=== PATIENT | female | born 1980 | race African-American/Black ===

== ENCOUNTER 2018-12-13 12:39 | Emergency (ER) | payer BC ==
[2018-12-13 13:04] VITALS: BP 148/91
[2018-12-13] MEDS ORDERED: METOCLOPRAMIDE HCL ORAL SOLN 10 MG/10 ML UDCUP PO ONE (14:24)
[2018-12-13] MEDS ORDERED: ASPIRIN 81 MG TABLET, CHEWABLE PO ONE (14:24)
[2018-12-13] MEDS ORDERED: LIDOCAINE 2% VISCOUS SOLN 20 ML UDCUP PO ONE (14:26)
--- NOTE | 2018-12-13 14:28 | ER Document Report ---
ED Medical Screen (RME) - General Chief Complaint: Chest Pain Stated Complaint: CHEST PAIN Time Seen by Provider: 12/13/18 14:24 Mode of Arrival: Ambulatory Information source: Patient Notes: 38-year-old female presented to ED for chest pain x1 week. She states her family medicine doctor and swelling as well as told her that she needed to come to the emergency room and be evaluated for chest pain. It is substernal chest pain. She does have a history of high blood pressure and gallbladder removal. She had 2 recent menstrual periods and I have listed them on the face she of her chart. Patient is alert oriented respirations regular and unlabored lungs are clear to auscultation. I have greeted and performed a rapid initial assessment of this patient. A comprehensive ED assessment and evaluation of the patient, analysis of test results and completion of medical decision making process will be conducted by an additional ED providers. Dictation of this chart was performed using voice recognition software; therefore, there may be some unintended grammatical errors. TRAVEL OUTSIDE OF THE [place] IN LAST 30 DAYS: No Physical Exam - Vital signs Vitals: Temp Pulse Resp BP Pulse Ox 98.3 F 69 16 148/91 H 98 12/13/18 13:03 12/13/18 13:03 12/13/18 13:03 12/13/18 13:03 12/13/18 13:03 Course - Vital Signs Vital signs: Temp Pulse Resp BP Pulse Ox 98.3 F 69 16 148/91 H 98 12/13/18 13:03 12/13/18 13:03 12/13/18 13:03 12/13/18 13:03 12/13/18 13:03
--- NOTE | 2018-12-15 10:22 | EKG REPORT ---
SEVERITY:- NORMAL ECG - SINUS RHYTHM : Confirmed by: Ken Vernon 15-Dec-2018 10:20:15
== END 2018-12-13 15:19 | disposition left against medical advice (07) ==
LOC: ER 12:39
DX: Z53.21 Procedure and treatment not carried out due to patient leaving prior to being seen by health care provider (principal); R07.9 Chest pain, unspecified; M79.89 Other specified soft tissue disorders
CPT/HCPCS: 93005; 93010; 99281

== ENCOUNTER 2019-02-26 14:38 | Emergency (ER) | payer BC ==
[2019-02-26] MEDS ORDERED: NORMAL SALINE 1000 ML 1,000 ML IV PRN (15:10)
[2019-02-26] MEDS ORDERED: PROMETHAZINE HCL INJ 25 MG/1 ML VIAL IM ONE (15:10)
--- NOTE | 2019-02-26 15:12 | ER Document Report ---
ED Medical Screen (RME) - General Chief Complaint: Vomiting Stated Complaint: VOMITING Time Seen by Provider: 02/26/19 15:10 TRAVEL OUTSIDE OF THE [place] IN LAST 30 DAYS: No - HPI Notes: 02/26/19 15:11 Patient is a 38-year-old female G4, P2 approximately 8 weeks with one previous miscarriage who presents complaining of nausea and vomiting that has been ongoing for the past 5 days. She will have some abdominal soreness associated. Patient states that she cannot keep any solid food down. Patient states that she has had hyperemesis with previous pregnancies. She also reports a medical history of cholecystectomy. She is not aware of the placement of her , but to have urinary confirmatory testing previously. She is urinating normally and having normal bowel movements. Denies BRAUN, fever, neck pain, URI, CP, SOB, dysuria, back pain, or rash. I have treated and performed a rapid initial assessment of this patient. A comprehensive ED assessment and evaluation of the patient, analysis of test results and completion of medical decision making process will be conducted by additional ED providers. PHYSICAL EXAMINATION: GENERAL: Well-appearing, well-nourished and in no acute distress. A&Ox4. Answers questions appropriately. LUNGS: Breath sounds clear to auscultation bilaterally and equal. No wheezes rales or rhonchi. HEART: Regular rate and rhythm without murmurs, rubs, gallops. ABDOMEN: Soft, nondistended abdomen. No guarding, no rebound. Normal bowel sounds present. No CVA tenderness bilaterally. Grossly nontender (cannot elicit thorough abd exam w/o bed, however). - Related Data Allergies/Adverse Reactions: No Known Allergies Allergy (Verified 02/26/19 14:41) Past Medical History - Social History Frequency of alcohol use: None Drug Abuse: None - Past Medical History Cardiac Medical History: Reports: Hx Hypertension Renal/ Medical History: Denies: Hx Peritoneal Dialysis Physical Exam - Vital signs Vitals: Temp Pulse Resp BP Pulse Ox 99.0 F 88 16 153/108 H 98 02/26/19 14:46 02/26/19 14:46 02/26/19 14:46 02/26/19 14:46 02/26/19 14:46 Course - Vital Signs Vital signs: Temp Pulse Resp BP Pulse Ox 99.0 F 88 16 153/108 H 98 02/26/19 14:46 02/26/19 14:46 02/26/19 14:46 02/26/19 14:46 02/26/19 14:46
[2019-02-26 15:46] LABS: ABSOLUTE BASOPHILS # (AUTO) 0.1 10^3/uL (0.0-0.2); ABSOLUTE LYMPHOCYTES (AUTO) 2.3 10^3/uL (0.5-4.7); BASOPHILS % (AUTO) 0.8 % (0-2); EOSINOPHILS % (AUTO) 0.3 % (0-6); HEMATOCRIT 36.4 % (36.0-47.0); HEMOGLOBIN 11.7 g/dL (12.0-15.5); MEAN CORPUSCULAR HEMOGLOBIN 22.6 pg (27.0-33.4); MEAN CORPUSCULAR HGB CONC 32.2 g/dL (32.0-36.0); MEAN CORPUSCULAR VOLUME 70 fl (80-97); MONOCYTES % (AUTO) 13.4 % (3-13); PLATELET COUNT 423 10^3/uL (150-450); RED CELL DISTRIBUTION WIDTH 17.7 % (11.5-14.0); SEGMENTED NEUTROPHILS % (AUTO) 54.5 % (42-78); TOTAL CELLS COUNTED % (AUTO) 100 %; WHITE BLOOD COUNT 7.3 10^3/uL (4.0-10.5)
[2019-02-26 16:05] LABS: ALBUMIN 4.1 g/dL (3.5-5.0); ALKALINE PHOSPHATASE 74 U/L (38-126); ANION GAP 7 (5-19); ASPARTATE AMINO TRANSFERASE 28 U/L (14-36); BILIRUBIN,DIRECT 0.3 mg/dL (0.0-0.4); BILIRUBIN,TOTAL 0.4 mg/dL (0.2-1.3); BLOOD UREA NITROGEN 8 mg/dL (7-20); CALCIUM 9.6 mg/dL (8.4-10.2); CARBON DIOXIDE 23 mmol/L (22-30); CHLORIDE 107 mmol/L (98-107); GLUCOSE 103 mg/dL (75-110); TOTAL PROTEIN 7.9 g/dL (6.3-8.2)
--- NOTE | 2019-02-26 16:08 | ER Document Report ---
ED GI/ - General Chief Complaint: Vomiting Stated Complaint: VOMITING Time Seen by Provider: 02/26/19 15:10 Primary Care Provider: [facility] [Provider Group] - Follow up as needed Notes: Patient is a 38-year-old female who presents to the emergency department with a chief complaint of nausea and vomiting. Patient states that she has vomited about 5-6 times per day for the past week. Patient reports a history of hyperemesis gravidarum during her other pregnancies. Patient states today she is attempted to eat ice chips and broth which she did keep down today. Patient states she feels like she is having acid reflux. Patient denies abdominal pain but reports generalized soreness to the upper abdomen from the vomiting. Patient states her last menstrual period was January 04. Patient has her first [facility] appointment at [facility] on March 07. Patient denies any urinary symptoms. Patient denies vaginal bleeding or discharge. TRAVEL OUTSIDE OF THE [place] IN LAST 30 DAYS: No - Related Data Allergies/Adverse Reactions: No Known Allergies Allergy (Verified 02/26/19 14:41) Past Medical History - General Information source: Patient - Social History Smoking Status: Never Smoker Frequency of alcohol use: None Drug Abuse: None Lives with: Spouse/Significant other Family History: None Patient has suicidal ideation: No Patient has homicidal ideation: No - Past Medical History Cardiac Medical History: Reports: Hx Hypertension Pulmonary Medical History: Reports: None EENT Medical History: Reports: None Neurological Medical History: Reports: None Endocrine Medical History: Reports: None Renal/ Medical History: Reports: None. Denies: Hx Peritoneal Dialysis Malignancy Medical History: Reports: None GI Medical History: Reports: None Musculoskeletal Medical History: Reports None Skin Medical History: Reports None Psychiatric Medical History: Reports: None Traumatic Medical History: Reports: None Infectious Medical History: Reports: None Past Surgical History: Reports: None Review of Systems - Review of Systems Constitutional: No symptoms reported EENT: No symptoms reported Cardiovascular: No symptoms reported Respiratory: No symptoms reported Gastrointestinal: See HPI Genitourinary: No symptoms reported Female Genitourinary: No symptoms reported Musculoskeletal: No symptoms reported Skin: No symptoms reported Hematologic/Lymphatic: No symptoms reported Neurological/Psychological: No symptoms reported Physical Exam - Vital signs Vitals: Temp Pulse Resp BP Pulse Ox 99.0 F 88 16 153/108 H 98 02/26/19 14:46 02/26/19 14:46 02/26/19 14:46 02/26/19 14:46 02/26/19 14:46 Interpretation: Hypertensive - Notes Notes: GENERAL: Well-appearing, well-nourished and in no acute distress. HEAD: Atraumatic, normocephalic. EYES: Pupils equal round and reactive to light, extraocular movements intact, sclera anicteric, conjunctiva are normal. ENT: Nares patent, oropharynx clear without exudates. Moist mucous membranes. NECK: Normal range of motion, supple without lymphadenopathy or JVD. LUNGS: Breath sounds clear to auscultation bilaterally and equal. No wheezes rales or rhonchi. HEART: Regular rate and rhythm without murmurs, rubs or gallops. ABDOMEN: Soft, nontender, hyperactive bowel sounds. No guarding, no rebound. No masses appreciated. BACK: No cervical, thoracic, lumbar midline tenderness. No saddle anesthesia, normal distal neurovascular exam. No CVA tenderness. GENITOURINARY: Deferred. EXTREMITIES: Normal range of motion, no pitting or edema. No clubbing or cyanosis. NEUROLOGICAL: Cranial nerves II through XII grossly intact. Normal speech, normal gait. PSYCH: Normal mood, normal affect. SKIN: Warm, Dry, normal turgor, no rashes or lesions noted. Course - Re-evaluation Re-evalutation: 02/26/19 16:06 Upon initial evaluation patient sitting upright in stretcher in no acute distress. Ultrasound and lab results are pending. Patient currently reports nausea without vomiting. Will give IV hydration as previously ordered in triage with antiemetic. 02/26/19 16:58 Patient received 500 mL's of saline and then her IV blew. Patient states she does feel much better and has not vomited. Patient would like to try to sip on some liquids. Crackers and liquids provided. Blood work was unremarkable for significant dehydration. Patient has yet to urinate. 02/26/19 17:28 Patient is tolerating sips of her beverage and saltine crackers. She has had no vomiting since arriving to the emergency department. Ultrasound and urinalysis results are pending. Urinalysis shows trace ketones as well as trace leukocytes with a low amount of white blood cells. 02/26/19 18:07 At time of discharge patient's blood pressure is slightly elevated. Patient denies headache, chest pain or shortness of breath. I did inform the patient to monitor her blood pressure at home and keep a blood pressure diary if she is able to take these readings to her [facility] at her appointment on 07 March. I did inform the patient to return if she develops a headache, dizziness, chest pain or any other concerning signs or symptoms. - Vital Signs Vital signs: Temp Pulse Resp BP Pulse Ox 99.0 F 79 16 141/100 H 98 02/26/19 14:46 02/26/19 18:00 02/26/19 14:46 02/26/19 18:00 02/26/19 18:00 - Laboratory Result Diagrams: 02/26/19 15:31 02/26/19 15:31 Laboratory results interpreted by me: 02/26/19 02/26/19 02/26/19 15:31 15:31 17:03 Hgb 11.7 L MCV 70 L MCH 22.6 L RDW 17.7 H Monocytes % 13.4 H Sodium 136.5 L Beta HCG, Quant 318060.00 H Urine Ketones 20 H Urine Urobilinogen 2.0 H Ur Leukocyte Esterase TRACE H 02/26/19 16:22 Patient's lab work is unremarkable does not show leukocytosis, significant anemia or alteration in her electrolytes, normal kidney and liver function. Laboratory 02/26/19 02/26/19 15:31 15:31 WBC 7.3 RBC 5.20 Hgb 11.7 L Hct 36.4 MCV 70 L MCH 22.6 L MCHC 32.2 RDW 17.7 H Plt Count 423 Seg Neutrophils % 54.5 Lymphocytes % 31.0 Monocytes % 13.4 H Eosinophils % 0.3 Basophils % 0.8 Absolute Neutrophils 4.0 Absolute Lymphocytes 2.3 Absolute Monocytes 1.0 Absolute Eosinophils 0.0 Absolute Basophils 0.1 Sodium 136.5 L Potassium 4.0 Chloride 107 Carbon Dioxide 23 Anion Gap 7 BUN 8 Creatinine 0.54 Est GFR ( Amer) > 60 Est GFR (Non-Af Amer) > 60 Glucose 103 Calcium 9.6 Total Bilirubin 0.4 Direct Bilirubin 0.3 Neonat Total Bilirubin Not Reportable Neonat Direct Bilirubin Not Reportable Neonat Indirect Bili Not Reportable AST 28 ALT 11 Alkaline Phosphatase 74 Total Protein 7.9 Albumin 4.1 Lipase 94.0 Total Beta HCG POSITIVE - Diagnostic Test Radiology reviewed: Reports reviewed Radiology results interpreted by me: 02/26/19 17:43 Obstetrics Ultrasound 02/26/19 15:10 IMPRESSION: LIVING INTRAUTERINE . EGA of 7 weeks 6 days Trimester of : First trimester - 0 to 13 weeks. Discharge - Discharge Clinical Impression: Vomiting during Acid reflux Qualifiers: Esophagitis presence: esophagitis presence not specified Qualified Code(s): K21.9 - Gastro-esophageal reflux disease without esophagitis Condition: Stable Disposition: HOME, SELF-CARE Additional Instructions: Today you were seen in the emergency department for vomiting during . We did obtain a ultrasound which does show a left single living intrauterine . Her estimated due date is October 08 and in the fetus is measuring 7 weeks and 6 days with a heart rate of 158. Please continue to keep your appointment with [facility] and comes in for any questions or concerns. Please return the emergency department if you develop abdominal pain, uncontrollable vomiting despite taking the Phenergan, vaginal bleeding or discharge or any other concerning signs or symptoms. He may take Tums, Maalox, Mylanta, Zantac or Prilosec for your heartburn. In regards to your nausea please eat small frequent meals. Using peppermint can help with nausea as well as sea-bands. Please take a vitamin. You are . care is best started as early in as possible. If you're unsure about continuing this , you should discuss this with your physician or with gyro mechanic at [facility]. You should take only medications approved by your physician. Acetaminophen can safely be taken for minor pains. As a rule, medication for chronic c onditions such as asthma or seizures can safely be continued. You should discuss with the physician every medicine you take. Any regular exercise program can be continued. Talk to your physician, however, before engaging in competitive or demanding sports. Alcohol, smoking, and "street drugs" are dangerous to your baby. Cocaine is especially dangerous. Don't use any illicit drugs! Prescriptions: Promethazine HCl [Phenergan 25 mg Tablet] 1 tab PO Q6H PRN #10 tablet PRN Reason: Referrals: [facility] [Provider Group] - Follow up as needed
[2019-02-26] MEDS ORDERED: LIDOCAINE 2% VISCOUS SOLN 20 ML UDCUP PO ONE (17:28)
[2019-02-26] MEDS ORDERED: MAG HYDROX/AL HYDROX/SIMETH SUSP 30 ML UDCUP PO ONE (17:28)
[2019-02-26] MEDS ORDERED: METOCLOPRAMIDE HCL ORAL SOLN 10 MG/10 ML UDCUP PO ONE (17:28)
[2019-02-26 17:29] LABS: APPEARANCE,URINE SLIGHTLY-CLOUDY; BILIRUBIN,URINE NEGATIVE (NEGATIVE); COLOR,URINE YELLOW; GLUCOSE, URINE NEGATIVE (NEGATIVE); KETONES,URINE 20 mg/dL (NEGATIVE); LEUKOCYTE ESTERASE,URINE TRACE (NEGATIVE); NITRITE,URINE NEGATIVE (NEGATIVE); PROTEIN,URINE NEGATIVE (NEGATIVE); URINE SPECIFIC GRAVITY 1.023
--- NOTE | 2019-02-26 17:35 | RADIOLOGY REPORT (SQ) ---
EXAM DESCRIPTION: U/S OB TRANSVAGINAL W/O DOP COMPLETED DATE/TIME: 02/26/2019 5:11 pm REASON FOR STUDY: preg, n/v, abd pain COMPARISON: None. TECHNIQUE: Transvaginal static and realtime grayscale images acquired of the pelvis. Additional gary cted spectral and color Doppler images recorded. All images stored on PACs. bHCG: Pending. CLINICAL DATES: 7 weeks 4 days LIMITATIONS: None. FINDINGS: FETUS: Single Living intrauterine . ULTRASOUND EGA: 7 weeks 6 days ULTRASOUND GURJIT: 10/09/2019 EFW: Not applicable less than 20 weeks. CRL: 1.5 cm FHR: 158 beats per minute. SURVEY: No visualized anomalies. AMNIOTIC FLUID: Adequate amount. PLACENTA: Not yet developed due to early gestation. SUBCHORIONIC BLEED: Yes. SIZE OF BLEED: 16 x 14 x 10 mm. UTERUS: No masses. No anomalies. CERVICAL LENGTH: 3.8 cm Closed. RIGHT ADNEXA: Ovary not identified due to poor acoustical window. No adnexal free fluid. No adnexal masses. LEFT ADNEXA: Normal ovary with normal vascular flow. No adnexal free fluid. No adnexal masses. FREE FLUID: None. OTHER: No other significant finding. IMPRESSION: LIVING INTRAUTERINE . EGA of 7 weeks 6 days Trimester of : First trimester - 0 to 13 weeks. TECHNICAL DOCUMENTATION: JOB ID: [id number] [employer]- All Rights Reserved rev-12/11 Reading location - IP/workstation name: [email or web address]
[2019-02-26 18:06] VITALS: BP 141/100
== END 2019-02-26 18:11 | disposition home or self-care (01) ==
LOC: ER 14:38
DX: O99.611 Diseases of the digestive system complicating pregnancy, first trimester (principal); K21.9 Gastro-esophageal reflux disease without esophagitis; O21.9 Vomiting of pregnancy, unspecified; O16.1 Unspecified maternal hypertension, first trimester; Z3A.01 Less than 8 weeks gestation of pregnancy
CPT/HCPCS: 99284; 96372; 96360; 36415; 84702; 83690; 85025; 80053; 81001; 76817; J3490; J2550; J7030